=== PATIENT | female | born 1955 | race Caucasian/White ===

== ENCOUNTER → 2021-12-13 10:39 | Outpatient (CLI) | payer MEDICARE, SELFPAY ==
--- NOTE | ~2021-12-13 | CT_ITS ---
EXAMINATION: CT cervical spine wo con DATE: 12/13/2021 10:57 INDICATION: Cervicalgia TECHNIQUE: Computed tomography (CT) of the cervical spine was performed without intravenous contrast. The dose-length product (DLP) was 177.21 mGy-cm. Automated exposure control and iterative reconstruc tion technique were employed. COMPARISON: 01/20/2012 FINDINGS: There are changes of interval anterior fusion and interbody device placement from C4 throug h C7. There are 2 mm of unchanged retrolisthesis of C4 on C5. Bone alignment is otherwise normal. The odontoid is intact. The prevertebral soft tissues are normal. There is sclerosis of the C4, C5, C6, and C7 vertebral bodies subtle osteopenia surrounding the stabilization screws. 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 There is moderate bilateral uncovertebral joint osteoarthritis at C3-4. IMPRESSION: 1. Changes of interval anterior fusion from C4 through C7 with mild spondylosis. Questionable mild lo osening of anterior stabilization screws. Reviewed, dictated and finalized at location A. IMPRESSION: 1. Changes of interval anterior fusion from C4 through C7 with mild spondylosis . Questionable mild loosening of anterior stabilization screws.
== END ==
PROVIDERS: PCP Neurological Surgery; Visit Provider Neurological Surgery
DX: M47.892 Other spondylosis, cervical region (principal); Z98.1 Arthrodesis status
CPT/HCPCS: 72125